=== PATIENT | female | born 1930 | race Two or more races ===

== ENCOUNTER 2017-03-30 18:42 | Inpatient (IN) | payer MEDICARE, MEDICAID ==
[~2017-03-30] VITALS: Ht 154.9 cm; Wt 66.5 kg
[~2017-03-30 18:42] MED LIST: CALC500T29 PO; FERR-68 PO; HYDR200T4 PO; LEVO50TA8 PO
--- NOTE | 2017-03-30 18:52 | NUR ---
PT JUST ARRIVED JUST NOW IN THE ER. PT WAS PRE REGISTERED EARLY BEFORE SHE ARRIVED IN THE ER
--- NOTE | 2017-03-30 18:59 | NUR ---
AT [facility]
--- NOTE | 2017-03-30 18:59 | NUR ---
CODE STROKE PAGED.
[2017-03-30] MEDS ORDERED: LISI2.5T2 PO (19:00)
[2017-03-30] MEDS ORDERED: METO-357 PO (19:00)
[2017-03-30] MEDS ORDERED: LEVO50TA8 PO (19:00)
[2017-03-30] MEDS ORDERED: MAGN400T6 PO (19:00)
[2017-03-30] MEDS ORDERED: SPIR25TA PO (19:00)
[2017-03-30] MEDS ORDERED: ACET-2605 PO (19:00)
[2017-03-30] MEDS ORDERED: ESCI5TAB PO (19:00)
[2017-03-30] MEDS ORDERED: DIGO125T PO (19:00)
--- NOTE | 2017-03-30 19:03 | NUR ---
[facility] TELESTROKE CALLED, SPOKE TO PIETRO/GIOVANNI. DR. NUNEZ NEUROLOGIST TO BE PAGED.
--- NOTE | 2017-03-30 19:15 | NUR ---
PT MOVED TO ER BED 5, THIS NURSE ASSUMING CARE OF PATIENT AT THIS TIME. PT BACK FROM CT.
--- NOTE | 2017-03-30 19:16 | NUR ---
AT BEDSIDE. NEUROLOGIST MAYRA ON TELE AT BEDSIDE.
[2017-03-30 19:22] LABS: BASOPHILS % (AUTO) 0.6 % (0.0-2.0); EOSINOPHILS # (AUTO) 0.2 /CMM (0.0-0.7); EOSINOPHILS % (AUTO) 3.5 % (0.0-6.0); HEMATOCRIT 35 % (33-45); HEMOGLOBIN 12.1 g/dL (11.5-14.8); LYMPHOCYTES # (AUTO) 2.5 /CMM (0.8-4.8); LYMPHOCYTES % (AUTO) 36.6 % (20.0-44.0); MEAN CORPUSCULAR HEMOGLOBIN 31 PG (26.0-33.0); MEAN CORPUSCULAR HGB CONC 35 g/dl (31.0-36.0); MEAN CORPUSCULAR VOLUME 88 fL (82-100); MONOCYTES # (AUTO) 0.7 /CMM (0.1-1.30); MONOCYTES % (AUTO) 10.4 % (2.0-12.0); NEUTROPHILS # (AUTO) 3.5 /CMM (1.8-8.9); NEUTROPHILS % (AUTO) 48.9 % (43.0-81.0); PLATELET COUNT (AUTO) 220 /CMM (150-450); RDW COEFFICIENT OF VARIATION 13.6 (11.5-15.0); RED BLOOD CELL COUNT(AUTO) 3.98 MIL/uL (4.0-5.2); WHITE BLOOD COUNT (AUTO) 6.9 K/uL (4.3-11.0)
[2017-03-30] MEDS ORDERED: IV NS 0.9% 500 ML IV ONE (19:30)
[2017-03-30 19:37] LABS: INR 1.06 (0.87-1.13)
[2017-03-30 19:49] LABS: ALANINE AMINOTRANSFERASE 27 U/L (12-78); ALBUMIN 3.5 g/dL (3.4-5.0); ALKALINE PHOSPHATASE 77 U/L (46-116); ASPARTATE AMINOTRANSFERASE 33 U/L (15-37); BILIRUBIN,DIRECT 0.1 mg/dL (0.0-0.2); BILIRUBIN,TOTAL 0.3 mg/dL (0.2-1.0); CALCIUM, SERUM 9.2 mg/dL (8.5-10.1); CARBON DIOXIDE 30 mmol/L (21-32); CHLORIDE 99 mmol/L (98-107); CREATININE 0.9 mg/dL (0.6-1.3); GLUCOSE 121 mg/dL (74-106); POTASSIUM 4.3 mmol/L (3.5-5.1); SODIUM SERUM 133 mmol/L (136-145); TOTAL PROTEIN, SERUM 8.3 g/dL (6.4-8.2); UREA NITROGEN, BLOOD 18 mg/dL (7-18)
[2017-03-30 19:53] LABS: TROPONIN I 0.065 ng/mL (0.00-0.056)
[2017-03-30] MEDS ORDERED: ASPIRIN 325 MG TABLET ONE (19:59)
[2017-03-30] MEDS ORDERED: ASPIRIN 325 MG TABLET PO ONE (20:00)
--- NOTE | 2017-03-30 20:01 | NUR ---
MEDICATED PER MD ORDERS. FAMILY AT BEDSIDE.
[2017-03-30 20:08] LABS: CHOLESTEROL 154 mg/dL (<200); HDL CHOLESTEROL 62 mg/dL (40-60); LDL 84 mg/dL (0-99); TRIGLYCERIDES 107 mg/dL (30-150)
--- NOTE | 2017-03-30 20:23 | NUR ---
REPORT GIVEN TO GIOVANNI DONOVAN FOR JOSHUA. PT GOING TO TELE 306-2.
[2017-03-30 20:30] VITALS: BP 120/62
--- NOTE | 2017-03-30 20:34 | NUR ---
PT TRANSPORTED TO [place] [address]-2 VIA STRETCHER WITH RN, ACLS PROTOCOL. VSS
--- NOTE | 2017-03-30 20:45 | NUR ---
TELE/RN OPENING NOTES PT ARRIVED TO UNIT FROM ER VIA GURNEY. A/OX3. HONDURAN SPEAKING. ABLE TO COMMUNICATE NEEDS. ON ROOM AIR, BREATHING EVEN AND UNLABORED. DENIES SOB AND PAIN AT THIS TIME. IN NO APPARENT DISTRESS. IV TO RAC, LAC AND LEFT HAND PATENT AND INTACT. ORIENTED PT TO ROOM AND CALL LIGHT. ENCOURAGED PT TO CALL FOR ASSISTANCE IF WANTING TO GET OUT OF BED. PT VERBALIZED UNDERSTANDING. BED ALARM ON FOR SAFETY. SIDE RAILS UPX3. PLACED ON TELE MONITOR, SHOWING SINUS RHYTHM, WITH PAC AND BBB, HR 68. WILL CONTINUE TO MONITOR
[2017-03-30] MEDS ORDERED: LORAZEPAM INJ 2 MG/ML VIAL IVP PRN (21:30)
[2017-03-30 21:45] VITALS: BP 120/62
--- NOTE | 2017-03-30 22:00 | NUR ---
TELE/RN NOTES DAUGHTER LESLIE AT BEDSIDE. [phone] REQUESTING OUR HOSPITALIST SPEAK TO PATIENT'S ESCALATOR MECHANIC DR. FLOYD TO OBTAIN RECORDS. WILL PROVIDE THE CONTACT NUMBER TOMORROW MORNING.
[2017-03-30] MEDS: IV NS 0.9% 1,000 ML IV PRN (22:50)
[2017-03-31] VITALS (7 sets, daily range): BP systolic 101–140; BP diastolic 50–77
--- NOTE | 2017-03-31 | NUR ---
TELE/RN NOTES ORTHOSTATIC BLOOD PRESSURES COMPLETED SUPINE= BP 104/59, HR 70 SITTING= BP 106/63, HR 74 STANDING= BP 116/51, HR 86
--- NOTE | 2017-03-31 01:03 | NUR ---
TELE/RN NOTES DR. ASHLEY AT BEDSIDE TO ASSESS PT.
[2017-03-31 06:47] LABS: BASOPHILS % (AUTO) 0.4 % (0.0-2.0); EOSINOPHILS # (AUTO) 0.1 /CMM (0.0-0.7); EOSINOPHILS % (AUTO) 2.3 % (0.0-6.0); HEMATOCRIT 31 % (33-45); HEMOGLOBIN 10.5 g/dL (11.5-14.8); LYMPHOCYTES # (AUTO) 1.9 /CMM (0.8-4.8); LYMPHOCYTES % (AUTO) 31.3 % (20.0-44.0); MEAN CORPUSCULAR HEMOGLOBIN 31 PG (26.0-33.0); MEAN CORPUSCULAR HGB CONC 34 g/dl (31.0-36.0); MEAN CORPUSCULAR VOLUME 90 fL (82-100); MONOCYTES # (AUTO) 0.6 /CMM (0.1-1.30); MONOCYTES % (AUTO) 9.7 % (2.0-12.0); NEUTROPHILS # (AUTO) 3.4 /CMM (1.8-8.9); NEUTROPHILS % (AUTO) 56.3 % (43.0-81.0); PLATELET COUNT (AUTO) 192 /CMM (150-450); RDW COEFFICIENT OF VARIATION 14.6 (11.5-15.0); RED BLOOD CELL COUNT(AUTO) 3.43 MIL/uL (4.0-5.2)
[2017-03-31 07:00] LABS: ALCOHOL, BLOOD < 3 mg/dL (0-0)
[2017-03-31 07:25] LABS: CALCIUM, SERUM 8.7 mg/dL (8.5-10.1); CARBON DIOXIDE 25 mmol/L (21-32); CHLORIDE 105 mmol/L (98-107); CREATININE 0.6 mg/dL (0.6-1.3); GLUCOSE 91 mg/dL (74-106); MAGNESIUM 2.2 mg/dL (1.8-2.4); PHOSPHORUS 3.7 mg/dL (2.5-4.9); POTASSIUM 4.3 mmol/L (3.5-5.1); SODIUM SERUM 137 mmol/L (136-145); UREA NITROGEN, BLOOD 15 mg/dL (7-18)
[2017-03-31] MEDS ORDERED: LEVOTHYROXINE SODIUM 50 MCG TABLET PO SCH (07:30)
--- NOTE | 2017-03-31 07:30 | NUR ---
TELE/RN CLOSING NOTES PT IN BED WITH EYES CLOSED. EASILY AROUSABLE TO NAME. A/OX2-3. ON ROOM AIR, BREATHING EVEN AND UNLABORED. DENIES SOB OR PAIN. DENIES DIZZINESS. ON TELE MONITOR, SR WITH BBB AND PAC, HR 62. IV TO LAC, RAC AND LEFT HAND PATENT AND INTACT. IVF RUNNING ORDERED. ORTHOSTATIC BP COMPLETED. BED REMAINS IN LOW/LOCKED POSITION WITH CALL LIGHT IN REACH. SIDE RAILS UPX2 AND BED ALARM ON FOR SAFETY. SEIZURE PRECAUTIONS IMPLEMENTED. MADE COMFORTABLE DURING SHIFT. ALL NEEDS MET. NO SIGNIFICANT CHANGES OVERNIGHT. ENDORSED TO DAY SHIFT RN JOSHUA AND DAUGHTER LESLIE REQUEST TO HAVE HOSPITALIST/MONORAIL CAR OPERATOR CONTACT PT'S PRIMARY MONORAIL CAR OPERATOR DR. FLOYD FOR FURTHER RECORDS. DAUGHTER TO PROVIDE THIS MORNING
--- NOTE | 2017-03-31 07:35 | NUR ---
LEAD ARCHITECT OPENING NOTE RECEIVED BEDSIDE SBAR REPORT ON THE PATIENT. PATIENT IS A/O X3, ASLEEP, EASILY AWAKEN. [place]ICAN SNEAKING ONLY. DENIES PAIN/DISCOMFORT AT THIS TIME. CHEST IS RISING EQUALLY BILATERALLY. EXTERNAL MONITOR READING SR W BBB. SPO2 98% ON RA. PATIENT IS IN BED. BED IS LOCKED IN LOWEST POSITION, SIDE RAILS UP X2, BED ALARM IS ON. CALL LIGHT WITHIN REACH. PATIENT IS EDUCATED TO USE THE CALL LIGHT TO CALL FOR ASSISTANCE VIA TEACH BACK METHOD AND VERBALIZED UNDERSTANDING/RETURNED DEMONSTRATION. ALL NEEDS ARE MET AT THIS TIME. WILL CONTINUE TO ASSESS/MONITOR THROUGHOUT THE SHIFT.
[2017-03-31] MEDS ORDERED: PANTOPRAZOLE 40 MG VIAL IV SCH (09:00)
[2017-03-31] MEDS: LEVOTHYROXINE SODIUM 50 MCG TABLET PO SCH (09:24)
[2017-03-31 09:26] LABS: PHENYTOIN (DILANTIN) < 10.0 ug/ml (10.0-20.0)
[2017-03-31] MEDS: LISINOPRIL (5MG) 5 MG TABLET PO SCH (09:26)
[2017-03-31] MEDS: PANTOPRAZOLE 40 MG TABLET.DR PO SCH (09:26)
[2017-03-31] MEDS: SPIRONOLACTONE 25 MG TABLET PO SCH (09:33)
[2017-03-31 10:09] LABS: THYROID STIMULATING HORMONE 0.993 uIU/mL (0.358-3.74)
[2017-03-31] MEDS: HYDROXYCHLOROQUINE 200 MG TABLET PO SCH ×2 (12:16→18:05)
[2017-03-31] MEDS: MAGNESIUM OXIDE 400 MG TABLET PO SCH ×2 (12:16→18:06)
[2017-03-31] MEDS: DIGOXIN 0.125 MG TABLET PO SCH (12:17)
--- NOTE | 2017-03-31 12:19 | NUR ---
PATIENT'S MEDICATIONS WERE NOR VERIFIED BY THE PHARMACY AT 9 O'CLOCK. CAME TO ADMINISTER [id number] ONCE VERIFIED, BUT PATIENT WAS SLEEPING AND ASKED TO COME BACK LATER. ADMINISTRING MEDICATIONS PASSED SCHEDULED TIME PER PATIENT'S REQUEST.
--- NOTE | 2017-03-31 15:20 | NUR ---
TROPONIN REPORTED ELEVATED/TRENDING UP. AWAITING FOR THE WRITTEN RESULT. WILL CONTACT MD PER PROTOCOL. Addendum: 03/31/17 at 1523 by PRIYANK CRUMP RN DOCUMENTED ON A WRONG PATIENT. DISREGARD THIS NOTE.
--- NOTE | 2017-03-31 16:57 | NUR ---
PATIENT'S LAC IV DISLODGED. NO S/S OF INFILTRATION. IV CATHETER REMOVED WITH THE TIP INTACT. OCLUSIVE DRESSING APPLIED. PATIENT TOLERATED PROCEDURE WELL.
--- NOTE | 2017-03-31 19:15 | NUR ---
RADAR MECHANIC CLOSING NOTE . PATIENT IS A/O X3, AWAKE AND RESPONSIVE. TURKS AND [place] SNEAKING ONLY. DENIES PAIN/DISCOMFORT AT THIS TIME. CHEST IS RISING EQUALLY BILATERALLY. EXTERNAL MONITOR READING SR W BBB. SPO2 97% ON RA. PATIENT IS IN BED. BED IS LOCKED IN LOWEST POSITION, SIDE RAILS UP X2, BED ALARM IS ON. CALL LIGHT WITHIN REACH. FAMILY AT THE BEDSIDE. PATIENT/FAMILY IS EDUCATED TO USE THE CALL LIGHT TO CALL FOR ASSISTANCE VIA TEACH BACK METHOD AND VERBALIZED UNDERSTANDING/RETURNED DEMONSTRATION. ALL NEEDS ARE MET AT THIS TIME. ALL DUE MEDICATIONS ADMINISTERED. WILL ENDORSE TO THE PHARMACY RETAIL SUPPORT SPECIALIST FOR JOSHUA.
--- NOTE | 2017-03-31 19:30 | NUR ---
RN OPEN NOTES RECEIVED PATIENT AWAKE IN BED. A/O X3. NO SIGNS OF DISTRESS OR DISCOMFORT. BREATHING EVEN AND UNLABORED. ON TELE MONITORING WITH SR W/BBB HR 74 NOTED. IV ACCESS IN L HAND AND RAC WITH NS INFUSING, PATENT AND INTACT, NO SIGNS OF REDNESS OR INFILTRATION. BED IN LOW LOCKED POSITION WITH SIDE RAILS X2. CALL LIGHT WITHIN REACH. WILL CONTINUE TO MONITOR.
[2017-04-01] VITALS: BP 123/56
[2017-04-01 04:00] VITALS: BP 124/57
[2017-04-01] MEDS: IV NS 0.9% 1,000 ML IV PRN (05:46)
[2017-04-01 07:05] LABS: BASOPHILS % (AUTO) 0.5 % (0.0-2.0); EOSINOPHILS # (AUTO) 0.2 /CMM (0.0-0.7); EOSINOPHILS % (AUTO) 2.7 % (0.0-6.0); HEMATOCRIT 31 % (33-45); HEMOGLOBIN 10.6 g/dL (11.5-14.8); LYMPHOCYTES # (AUTO) 1.7 /CMM (0.8-4.8); LYMPHOCYTES % (AUTO) 30.4 % (20.0-44.0); MEAN CORPUSCULAR HEMOGLOBIN 31 PG (26.0-33.0); MEAN CORPUSCULAR HGB CONC 34 g/dl (31.0-36.0); MEAN CORPUSCULAR VOLUME 90 fL (82-100); MONOCYTES # (AUTO) 0.6 /CMM (0.1-1.30); MONOCYTES % (AUTO) 10.1 % (2.0-12.0); NEUTROPHILS # (AUTO) 3.2 /CMM (1.8-8.9); NEUTROPHILS % (AUTO) 56.3 % (43.0-81.0); PLATELET COUNT (AUTO) 192 /CMM (150-450); RDW COEFFICIENT OF VARIATION 14.8 (11.5-15.0); RED BLOOD CELL COUNT(AUTO) 3.48 MIL/uL (4.0-5.2); WHITE BLOOD COUNT (AUTO) 5.7 K/uL (4.3-11.0)
[2017-04-01 07:06] LABS: CALCIUM, SERUM 9.1 mg/dL (8.5-10.1); CARBON DIOXIDE 28 mmol/L (21-32); CHLORIDE 106 mmol/L (98-107); CREATININE 0.6 mg/dL (0.6-1.3); GLUCOSE 89 mg/dL (74-106); PHOSPHORUS 3.6 mg/dL (2.5-4.9); POTASSIUM 4.4 mmol/L (3.5-5.1); SODIUM SERUM 140 mmol/L (136-145); UREA NITROGEN, BLOOD 16 mg/dL (7-18)
[2017-04-01 08:00] VITALS: BP 115/50
--- NOTE | 2017-04-01 08:00 | NUR ---
CONTINUOUS WELD PIPE MILL SUPERVISOR NOTES PATIENT IN BED RESTING NO SOB OR ACUTE DISTRESS NOTED. PATIENT ALERT, ORIENTED X3 [place] SPEAKING. FAMILY AT BEDSIDE. PERIPHERAL IV INTACT PATENT. BED IN LOW LOCKED POSITION. WILL CONTINUE TO MONITOR.
--- NOTE | 2017-04-01 08:38 | NUR ---
RN CLOSING NOTES PATIENT AWAKE IN BED. A/O X3. NO SIGNS OF DISTRESS OR DISCOMFORT. BREATHING EVEN AND UNLABORED. ON TELE MONITORING WITH SR W/BBB HR 61 NOTED. IV ACCESS IN L HAND AND RAC WITH NS INFUSING, PATENT AND INTACT, NO SIGNS OF REDNESS OR INFILTRATION. ALL NEEDS MET. NO SIGNIFICANT CHANGES THROUGH THE NIGHT. BED IN LOW LOCKED POSITION WITH SIDE RAILS X2. CALL LIGHT WITHIN REACH. ENDORSED TO AM SHIFT FOR JOSHUA.
[2017-04-01 09:00] VITALS: BP 115/50
[2017-04-01] MEDS ORDERED: ESCITALOPRAM OXALATE (10 MG) 10 MG TABLET PO SCH (09:00)
[2017-04-01] MEDS: LISINOPRIL (5MG) 5 MG TABLET PO SCH (09:00)
[2017-04-01] MEDS: LEVOTHYROXINE SODIUM 50 MCG TABLET PO SCH (09:12)
[2017-04-01] MEDS: HYDROXYCHLOROQUINE 200 MG TABLET PO SCH (09:12)
[2017-04-01] MEDS: PANTOPRAZOLE 40 MG TABLET.DR PO SCH (09:12)
[2017-04-01] MEDS: MAGNESIUM OXIDE 400 MG TABLET PO SCH (09:12)
[2017-04-01] MEDS: SPIRONOLACTONE 25 MG TABLET PO SCH (09:12)
[2017-04-01] MEDS: DIGOXIN 0.125 MG TABLET PO SCH (09:13)
--- NOTE | 2017-04-01 10:00 | NUR ---
RESIDENTIAL INTERIOR DESIGNER NOTES PATIENT SEEN AND EVALUATED BY DR. VERDUGO ORDER NOTED AND CARRIED OUT.
--- NOTE | 2017-04-01 14:30 | NUR ---
MS RN NOTES PER CASE MANAGEMENT PATIENTS HOME HEALTH IS SET UP WITH [facility] AT [phone]. PATIENT PROVIDED WITH PHONE NUMBER.
--- NOTE | 2017-04-01 15:00 | NUR ---
MS RN NOTES PATIENT DISCHARGED HOME IN STABLE CONDITION WITH FAMILY. DISCHARGE INSTRUCTIONS PROVIDED TO FAMILY AND PATIENT, VERBALIZED UNDERSTANDING. PATIENT STATES SHE HAS AN APPOINTMENT WITH REGIONAL HR MANAGER TOMORROW MORNING. MD AWARE OF ALL ABNORMAL LABS. ALL BELONGINGS ACCOUNTED FOR. BELONGING LIST SIGNED. DISCHARGE PROTOCOL FOLLOWED. PERIPHERAL IV REMOVED WITH MINIMAL BLEEDING. ID BAND REMOVED. PATIENT ESCORTED TO CAR.
[2017-04-03 15:11] LABS: *SPE ALBUMIN 3.2 g/dL (2.9-4.4); *SPE ALPHA-1-GLOBULIN 0.2 g/dL (0.0-0.4); *SPE ALPHA-2-GLOBULIN 0.5 g/dL (0.4-1.0); *SPE BETA GLOBULIN 0.7 g/dL (0.7-1.3); *SPE GLOBULIN, TOTAL 3.2 g/dL (2.2-3.9); *SPE M-SPIKE Not Observed g/dL (Not Observed); *SPEGAMMA GLOBULIN 1.8 g/dL (0.4-1.8)
== END 2017-04-01 15:00 | disposition home health service (06) | DRG 73 ==
LOC: ER 18:45 → TELE 20:07 → MED 04-01 11:10
PROVIDERS: ADMIT Internal Medicine; ATTEND Internal Medicine
DX: G90.8 Other disorders of autonomic nervous system (principal); I21.A1 Myocardial infarction type 2; G93.41 Metabolic encephalopathy; E87.1 Hypo-osmolality and hyponatremia; R55 Syncope and collapse; D64.9 Anemia, unspecified; I34.0 Nonrheumatic mitral (valve) insufficiency; E03.9 Hypothyroidism, unspecified; I10 Essential (primary) hypertension; Z79.899 Other long term (current) drug therapy; F32.9 Major depressive disorder, single episode, unspecified; I35.0 Nonrheumatic aortic (valve) stenosis
CPT/HCPCS: 36415; 70450-TC; 71045-TC; 80048-TC; 80061-TC; 80076-TC; 80162-TC; 80185-TC; 80305; 82728-TC; 82962-TC; 83540-TC; 83735-TC; 84100-TC; 84155; 84165; 84439-TC; 84443-TC; 84484-TC; 85025-TC; 85730-TC; 93307-TC; 93880-TC; 95819-TC; A4606; G0480; J7030; J7040; Z7610